=== PATIENT | female | born 1980 | race African-American/Black ===

== ENCOUNTER 2017-02-13 08:40 | Emergency (ER) | payer SELFPAY ==
[~2017-02-13] VITALS: Ht 177.8 cm; Wt 115.2 kg
[2017-02-13 10:36] LABS: HEMATOCRIT 35.3 % (36.0-46.0); MCH 23.7 PG (29.0-34.0); MCHC 30.6 G/DL (30.0-36.0); MCV 77.6 FL (83-99); MEAN PLAT.VOLUME 9.3 uM^3 (9.5-12.4); PLATELET COUNT 315 K/uL (156-360); RBC DIS.WIDTH-CV 17.2 % (11.8-14.6); RBC DIS.WIDTH-SD 48.3 % (39-53); RED BLOOD COUNT 4.55 M/uL (3.80-5.20); WHITE BLOOD COUNT 4.6 K/uL (4.1-10.2)
[2017-02-13 11:04] LABS: D-DIMER ELISA 0.28 mg/L FEU (< 0.57)
[2017-02-13 11:10] LABS: ANION GAP 6 MEQ/L (2-14); CHLORIDE 105 MEQ/L (99-109); POTASSIUM 3.2 MEQ/L (3.7-5.4); SAMPLE HEMOLYSIS CHECK 0; SAMPLE ICTERIC CHECK 0; SAMPLE LIPEMIA CHECK 0; SODIUM 135 MEQ/L (136-147)
[2017-02-13 11:16] LABS: GFR ESTIMATE (CALCULATED) > 59 mL/min/; GLUCOSE 85 mg/dL (70-99); UREA NITROGEN (BUN) 10 mg/dL (9-23)
[2017-02-13] MEDS ORDERED: VENTOLIN HFA18 GM IH (11:24)
[2017-02-13] MEDS ORDERED: PREDNISONE20 MG PO (11:25)
[2017-02-13] MEDS ORDERED: FLOVENT DISKUS1 DIS1 IH (11:26)
[2017-02-13 11:51] VITALS: BP 129/97
== END 2017-02-13 11:52 | disposition home or self-care (01) ==
LOC: EME 08:40
PROVIDERS: Nurse Practitioner Family
DX: J45.901 Unspecified asthma with (acute) exacerbation (principal)
CPT/HCPCS: 71020; 80048; 85027; 85379; 94640; 99281; 99283; J7512